=== PATIENT | female | born 1995 | race American Indian/Alaskan Native ===

== ENCOUNTER 2016-08-17 09:37 | Emergency (ER) | payer SELFPAY ==
[2016-08-17 09:50] VITALS: BP 123/74
[2016-08-17] MEDS ORDERED: FUL-GLO OP ONE (10:36)
[2016-08-17] MEDS ORDERED: BSS ONE (10:37)
[2016-08-17] MEDS ORDERED: TETRACAINE 0.5% ONE (10:37)
[2016-08-17] MEDS ORDERED: BSS 1 DROPS, TETRACAINE 0.5% 1 DROPS, FUL-GLO 1 MG OS ONE ×2 (10:39→11:00)
--- NOTE | 2016-08-17 10:43 | Emergency Department Report ---
[facility] Chief Complaint: Eye Problems Stated Complaint: PINK EYE Time Seen by Provider: 08/17/16 10:08 Duration: 2 Days Symptoms: Yes Eye Itching, Yes Eye Redness, Yes Eye Pain (burning), Yes Mucous Drainage, Yes Blurred Vision, No Purulent Drainage, No Preceding URI, No H/O Allergic Rhinitis, No Contact Lens Use, No Trauma, No Fever, No Headache Other History: Patient complains of Left eye itching and burning 2 days. States she woke up today and the left eye was gum shut. Reports blurring of vision in the left eye and light sensitivity. Denies headache, fever, chills, nausea, vomiting, rash. Denies trauma to eye. Denies other acute eye complaints. LMP 07/30/16. ED Review of Systems ROS: Stated complaint: PINK EYE Other details as noted in HPI Comment: All other systems reviewed and negative ED Past Medical Hx - Past Medical History Hx Hypertension: No Hx Congestive Heart Failure: No Hx Diabetes: No Hx Deep Vein Thrombosis: No Hx Renal Disease: No Hx Sickle Cell Disease: No Hx Seizures: No Hx Asthma: No Hx COPD: No Hx HIV: No - Surgical History Additional Surgical History: csection 09/02/13 - Social History Smoking Status: Never Smoker Substance Use Type: None - Medications Home Medications: Home Medications Medication Instructions Recorded Confirmed Last Taken Type Amoxicillin [Trimox CAP] 500 mg PO Q8H #30 capsule 06/12/15 Unknown Rx Fluticasone [Flonase] 2 spray NS QDAY #01 bottle 06/12/15 Unknown Rx Ibuprofen [Motrin] 600 mg PO Q8H PRN #40 tablet 06/12/15 Unknown Rx Loratadine [Claritin] 10 mg PO DAILY #30 tablet 06/12/15 Unknown Rx predniSONE [Deltasone] 40 mg PO QDAY #10 tab 06/12/15 Unknown Rx Gentamicin 0.3% Ophth Oint 1 applicatio OP QHS #1 tube 08/17/16 Unknown Rx Gentamicin 0.3% Ophth Soln 1 drops OP Q4H #1 bottle 08/17/16 Unknown Rx [facility] Exam - Exam General: Vital signs noted. No distress. Alert and acting appropriately. Eye Exam: Left Injection (mild compared to R.), Left Mucous Discharge, Left Photophobia, Both EOMI, Neither Chemosis, Neither Abnormal Pupil, Neither Eye Foreign Body, Neither Lid Foreign Body, Neither Purulent Discharge, Neither Fluorescein Uptake (under Pedraza lamp), Neither Corneal Edema HEENT: No Nasal Congestion, No Pharyngeal Erythema Remainder of HEENT: Normal Lungs: Yes Clear Lung Sounds, Yes Good Air Exchange, No Wheezes, No Stridor, No Cough, No Nasal Flaring, No Retractions, No Use of Accessory Muscles Exam: Visual Acuity: 20/25: OU, 20/30: OS, 20/20: OD. ED Course Vital Signs 08/17/16 09:48 Temperature 97.9 F Pulse Rate 74 Respiratory 16 Rate Blood Pressure 123/74 O2 Sat by Pulse 100 Oximetry Critical care attestation.: If time is entered above; I have spent that time in minutes in the direct care of this critically ill patient, excluding procedure time. ED Disposition Clinical Impression: Conjunctivitis Qualifiers: Conjunctivitis type: unspecified Laterality: left Qualified Code(s): H10.9 - Unspecified conjunctivitis Disposition: DISCHARGED TO HOME OR SELFCARE Is pt being admited?: No Does the pt Need Aspirin: No Condition: Stable Instructions: Conjunctivitis (ED) Prescriptions: Gentamicin 0.3% Ophth Oint 1 applicatio OP QHS #1 tube Gentamicin 0.3% Ophth Soln 1 drops OP Q4H #1 bottle Referrals: SMITA AVINA MD [Staff Physician] - 2-3 Days PRIMARY CARE, [Primary Care Provider] - 2-3 Days
== END 2016-08-17 11:01 | disposition home or self-care (01) ==
LOC: ED 09:37
DX: H10.9 Unspecified conjunctivitis (principal)
CPT/HCPCS: 99282

== ENCOUNTER 2018-01-12 00:20 | Emergency (ER) | payer SELFPAY ==
[2018-01-12 00:27] VITALS: BP 141/72
== END 2018-01-12 00:27 | disposition left against medical advice (07) ==
LOC: ED 00:20
DX: N93.9 Abnormal uterine and vaginal bleeding, unspecified (principal); Z53.21 Procedure and treatment not carried out due to patient leaving prior to being seen by health care provider

== ENCOUNTER 2018-04-13 14:41 | Inpatient (IN) | payer SELFPAY ==
[2018-04-13] MEDS ORDERED: TORADOL IV ONE (15:07)
[2018-04-13] MEDS ORDERED: ZOFRAN IV ONE (15:07)
[2018-04-13] MEDS ORDERED: NACL 0.9% 1000 ML 1,000 ML IV ONE ×2 (15:07→19:26)
--- NOTE | 2018-04-13 15:08 | Emergency Department Report ---
ED Abdominal Pain HPI - General Chief Complaint: Abdominal Pain Stated Complaint: STOMACH PAIN/VOMIT Time Seen by Provider: 04/13/18 15:05 Source: patient Mode of arrival: Ambulatory Limitations: No Limitations - History of Present Illness Initial Comments: This is a 22-year-old female nontoxic, well nourished in appearance, no acute signs of distress presents to the ED with c/o of nausea and vomiting and abdominal pain 1 day. Patient describes vomiting as food content and yellow gastric acid. Patient describes abdominal pain as cramping and aching with level of 3/10 diffuse. Patient denies chest pain, short of breath, fever, chills, headache, stiff neck, numbness or tingling. Patient denies any diarrhea or constipation. Patient denies any recent travels. Patient denies any allergies or PMH. MD Complaint: abdominal pain -: days(s) (1) Location: diffuse Radiation: none Migration to: no migration Severity: mild Severity scale (0 -10): 3 Quality: cramping, aching Consistency: constant Improves With: nothing Worsens With: nothing Associated Symptoms: nausea, vomiting. denies: diarrhea, fever, chills, constipation, dysuria, hematemesis, hematochezia, melena, hematuria, anorexia, syncope - Related Data Previous Rx's Medication Instructions Recorded Last Taken Type Amoxicillin [Trimox CAP] 500 mg PO Q8H #30 capsule 06/12/15 Unknown Rx Fluticasone [Flonase] 2 spray NS QDAY #01 bottle 06/12/15 Unknown Rx Ibuprofen [Motrin] 600 mg PO Q8H PRN #40 tablet 06/12/15 Unknown Rx Loratadine [Claritin] 10 mg PO DAILY #30 tablet 06/12/15 Unknown Rx predniSONE [Deltasone] 40 mg PO QDAY #10 tab 06/12/15 Unknown Rx Gentamicin 0.3% Ophth Oint 1 applicatio OP QHS #1 tube 08/17/16 Unknown Rx Gentamicin 0.3% Ophth Soln 1 drops OP Q4H #1 bottle 08/17/16 Unknown Rx Allergies Allergy/AdvReac Type Severity Reaction Status Date / Time No Known Allergies Allergy Verified 06/12/15 07:44 ED Review of Systems ROS: Stated complaint: STOMACH PAIN/VOMIT Other details as noted in HPI Constitutional: denies: chills, fever Eyes: denies: eye pain, eye discharge, vision change ENT: denies: ear pain, throat pain Respiratory: denies: cough, shortness of breath, wheezing Cardiovascular: denies: chest pain, palpitations Endocrine: no symptoms reported Gastrointestinal: abdominal pain, nausea, vomiting. denies: diarrhea Genitourinary: denies: urgency, dysuria, discharge Musculoskeletal: denies: back pain, joint swelling, arthralgia Skin: denies: rash, lesions Neurological: denies: headache, weakness, paresthesias Psychiatric: denies: anxiety, depression Hematological/Lymphatic: denies: easy bleeding, easy bruising ED Past Medical Hx - Past Medical History Hx Hypertension: No Hx Congestive Heart Failure: No Hx Diabetes: No Hx Deep Vein Thrombosis: No Hx Renal Disease: No Hx Sickle Cell Disease: No Hx Seizures: No Hx Asthma: No Hx COPD: No Hx HIV: No - Surgical History Additional Surgical History: csection 09/02/13 - Social History Smoking Status: Never Smoker Substance Use Type: None - Medications Home Medications: Home Medications Medication Instructions Recorded Confirmed Last Taken Type Amoxicillin [Trimox CAP] 500 mg PO Q8H #30 capsule 06/12/15 Unknown Rx Fluticasone [Flonase] 2 spray NS QDAY #01 bottle 06/12/15 Unknown Rx Ibuprofen [Motrin] 600 mg PO Q8H PRN #40 tablet 06/12/15 Unknown Rx Loratadine [Claritin] 10 mg PO DAILY #30 tablet 06/12/15 Unknown Rx predniSONE [Deltasone] 40 mg PO QDAY #10 tab 06/12/15 Unknown Rx Gentamicin 0.3% Ophth Oint 1 applicatio OP QHS #1 tube 08/17/16 Unknown Rx Gentamicin 0.3% Ophth Soln 1 drops OP Q4H #1 bottle 08/17/16 Unknown Rx ED Physical Exam - General Limitations: No Limitations General appearance: alert, in no apparent distress - Head Head exam: Present: atraumatic, normocephalic - Eye Eye exam: Present: normal appearance Pupils: Present: normal accommodation - ENT ENT exam: Present: normal exam, mucous membranes moist - Neck Neck exam: Present: normal inspection, full ROM. Absent: tenderness, meningismus, lymphadenopathy - Respiratory Respiratory exam: Present: normal lung sounds bilaterally. Absent: respiratory distress, wheezes, rales, rhonchi, stridor, chest wall tenderness, accessory muscle use, decreased breath sounds, prolonged expiratory - Cardiovascular Cardiovascular Exam: Present: regular rate, normal rhythm, normal heart sounds. Absent: bradycardia, tachycardia, irregular rhythm, systolic murmur, diastolic murmur, rubs, gallop - GI/Abdominal GI/Abdominal exam: Present: soft, tenderness (diffuse), normal bowel sounds. Absent: distended, guarding, rebound, rigid, diminished bowel sounds - Expanded GI/Abdominal Exam Expanded GI/Abdominal exam: Absent: psoas sign, heel tap sign, Gill's sign, Rovsing's sign, tenderness at Mcburney's Point - Rectal Rectal exam: Present: deferred - Extremities Exam Extremities exam: Present: normal inspection, full ROM, normal capillary refill. Absent: tenderness - Back Exam Back exam: Present: normal inspection, full ROM. Absent: tenderness, CVA tenderness (R), CVA tenderness (L), muscle spasm, paraspinal tenderness, vertebral tenderness, rash noted - Neurological Exam Neurological exam: Present: alert, oriented X3, normal gait - Psychiatric Psychiatric exam: Present: normal affect, normal mood - Skin Skin exam: Present: warm, dry, intact, normal color. Absent: rash ED Course Vital Signs 04/13/18 04/13/18 14:51 15:22 Temperature 97.7 F Pulse Rate 64 Respiratory 20 18 Rate Blood Pressure 151/76 O2 Sat by Pulse 100 Oximetry - Reevaluation(s) Reevaluation #1: 04/13/18 15:24 Patient is speaking in full sentences with no signs of distress noted. - Consultations Consultation #1: 04/13/18 19:31 Patient has been consulted with Dr. Hawk (general surgery) about patient history, physical exam, and labs/CT and agrees for admission with Zosyn IV, NPO , and NOrmal saline. Patient to be admitted with hospitalist. ED Medical Decision Making - Lab Data Result diagrams: 04/13/18 15:23 04/13/18 15:23 - Medical Decision Making This is a 22-year-old female that presents with acute appendicitis. Patient is stable and was examined by me. Patient has been consulted with Dr. Hawk with agrees for admission. Labs obtained. UA obtained. Ct with contrast of abdomen obtained and dictated by the radiologist. Patient is notified of the report with no questions noted by the patient. Vital signs are stable prior to discharge. Hospitalist has been consulted Dr. Cano in accepts patient to services. Patient put on NPO with 125 ml/hr NS. PAtient received 1L normal saline and Zofran, Zosyn, Morphin in the ED. At time of admission, the patient does not seem toxic or ill in appearance. No acute signs of distress noted. Patient agrees to admission treatment plan of care. No further questions noted by the patient. Critical care attestation.: If time is entered above; I have spent that time in minutes in the direct care of this critically ill patient, excluding procedure time. ED Disposition Clinical Impression: Acute appendicitis Qualifiers: Acute appendicitis type: unspecified acute appendicitis type Qualified Code(s) : K35.80 - Unspecified acute appendicitis Nausea & vomiting Qualifiers: Vomiting type: unspecified Vomiting Intractability: non-intractable Qualified Code(s): R11.2 - Nausea with vomiting, unspecified Disposition: DC-09 OP ADMIT IP TO THIS HOSP Is pt being admited?: Yes Condition: Stable Instructions: Abdominal Pain (ED) Referrals: PRIMARY CARE, [Primary Care Provider] - 3-5 Days
[2018-04-13 15:28] LABS: HCG Qualitative,Urine Negative (Negative)
[2018-04-13 15:30] LABS: Bilirubin,Urine NEG (Negative); Blood,Urine NEG (Negative); Color,Urine Yellow (Yellow); Mucus,Urine FEW /HPF; Protein,Urine <15 mg/dL mg/dL (Negative); RBC,Urine < 1.0 /HPF (0.0-6.0); Urobilinogen,Urine < 2.0 mg/dL (<2.0); WBC,Urine < 1.0 /HPF (0.0-6.0)
[2018-04-13 15:49] LABS: Basophils % (Auto) 0.3 % (0.0-1.8); Eosinophils # (Auto) 0.1 K/mm3 (0.0-0.4); Eosinophils % (Auto) 0.9 % (0.0-4.3); Hematocrit 33.1 % (30.3-42.9); Hemoglobin 10.5 gm/dl (10.1-14.3); Lymphocytes # (Auto) 1.2 K/mm3 (1.2-5.4); Mean Corpuscular HGB Conc 32 % (30-34); Mean Corpuscular Volume 76 fl (79-97); Monocytes # (Auto) 0.4 K/mm3 (0.0-0.8); Monocytes % (Auto) 5.7 % (0.0-7.3); Platelet Count 245 K/mm3 (140-440); Red Blood Count 4.33 M/mm3 (3.65-5.03); Red Cell Distribution Width 19.4 % (13.2-15.2)
[2018-04-13 15:57] LABS: Mean Corpuscular Hemoglobin 24 pg (28-32)
[2018-04-13 16:08] LABS: Alanine Aminotransferase 25 units/L (7-56); Albumin 4.3 g/dL (3.9-5); BUN/Creatinine Ratio 10; Blood Urea Nitrogen 7 mg/dL (7-17); Calcium 9.6 mg/dL (8.4-10.2); Hemolysis Index 1; Lipase 12 units/L (13-60)
[2018-04-13 16:35] LABS: Bilirubin,Direct < 0.2 mg/dL (0-0.2)
--- NOTE | 2018-04-13 18:44 | Cat Scan Report ---
FINAL REPORT EXAM: CT ABDOMEN PELVIS W CON HISTORY: abd pain with nausea vomiting TECHNIQUE: Spiral CT scanning of the abdomen and pelvis after the uneventful administration of IV contrast. Multiplanar reformations. 100 mL Omnipaque IV. PRIORS: None. FINDINGS: Abdomen: Visualized lung bases grossly unremarkable. No radiopaque gallstones. Liver without significant abnormality. Spleen without significant abnormality. Pancreas without significant abnormality. Kidneys without significant abnormality. Adrenal glands without significant abnormality. Pelvis: Distal appendix is mildly enlarged, measuring 7-8 mm in maximal diameter, with some wall thickening and mild inflammatory change in the surrounding mesentery. Proximal-mid appendix grossly unremarkable. Bowel grossly unremarkable. Trace amount of nonspecific, free fluid in the pelvis may be physiologic. No discrete abscess. Abdominal aorta non-aneurysmal. Axial skeleton grossly unremarkable. IMPRESSION: 1. Findings suspicious for early, acute or mild tip appendicitis. Clinical correlation with appropriate laboratory values and followup suggested. Dr. Evans discussed results with nurse practitioner, named Radha Mccarty, on 13 April 2018 at approximately 1840 hours EST.
[2018-04-13] MEDS ORDERED: MORPHINE IV ONE (19:20)
[2018-04-13] MEDS ORDERED: ZOSYN/NS 4.5GM/100ML 4.5 GM/100 ML VIAL IV ONE (19:36)
[2018-04-13] MEDS ORDERED: ZOSYN/NS 4.5GM/100ML 4.5 GM/100 ML VIAL IV SCH (20:00)
[2018-04-13] MEDS ORDERED: SODIUM CHLORIDE FLUSH SYRINGE 10 ML IV PRN (22:09)
[2018-04-13] MEDS ORDERED: MORPHINE IV PRN (22:09)
[2018-04-13] MEDS ORDERED: TYLENOL PO PRN (22:09)
--- NOTE | 2018-04-13 22:11 | History and Physical Report ---
History of Present Illness Date of examination: 04/13/18 History of present illness: 22-year-old man with no medical problems comes emergency room with complaints of abdominal pain located in the mid abdomen that started this morning. She describes the pain as crampy, constant, intensity 6/10, no radiation, relieved with pain medication. Admits to nausea vomiting, no fever or chills Review of systems Constitutional: no weight loss, chills, fever Ears, eyes, nose, mouth and throat: no nasal congestion, no nasal discharge, no sinus pressure, no vision change, no red eye. Neck: No neck pain or rigidity. Cardiovascular: no chest pain, palpitations Respiratory: no cough, shortness of breath Gastrointestinal: no hematochezia Genitourinary : no frequency , no hematuria Musculoskeletal: no joint swelling or muscle ache Integumentary: no rash, no pruritis Neurological: no parathesias, no numbness, no focal weakness Endocrine: no cold or heat intolerance, no polyuria or polydipsia Hematologic/Lymphatic: no easy bruising, no easy bleeding, no gland swelling Allergic/Immunologic: no urticaria, no angioedema. PAST MEDICAL HISTORY: None PAST SURGICAL HISTORY: SOCIAL HISTORY: No alcohol, no drugs, tobacco FAMILY HISTORY: Hypertension Medications and Allergies Allergies Allergy/AdvReac Type Severity Reaction Status Date / Time No Known Allergies Allergy Verified 06/12/15 07:44 Home Medications Medication Instructions Recorded Confirmed Last Taken Type Amoxicillin [Trimox CAP] 500 mg PO Q8H #30 capsule 06/12/15 Unknown Rx Fluticasone [Flonase] 2 spray NS QDAY #01 bottle 06/12/15 Unknown Rx Ibuprofen [Motrin] 600 mg PO Q8H PRN #40 tablet 06/12/15 Unknown Rx Loratadine [Claritin] 10 mg PO DAILY #30 tablet 06/12/15 Unknown Rx predniSONE [Deltasone] 40 mg PO QDAY #10 tab 06/12/15 Unknown Rx Gentamicin 0.3% Ophth Oint 1 applicatio OP QHS #1 tube 08/17/16 Unknown Rx Gentamicin 0.3% Ophth Soln 1 drops OP Q4H #1 bottle 08/17/16 Unknown Rx Active Meds: Active Medications Piperacillin Sod/Tazobactam Sod (Zosyn/Ns 4.5gm/100ml) 4.5 gm in 100 mls @ 200 mls/hr IV ONCE DUNIA Last Admin: 04/13/18 19:52 Dose: 200 mls/hr Sodium Chloride (Nacl 0.9% 1000 Ml) 1,000 mls @ 125 mls/hr IV ONCE ONE Stop: 04/14/18 03:25 Last Admin: 04/13/18 19:50 Dose: 125 mls/hr Exam - Physical Exam Narrative exam: Gen. appearance: Patient lying in bed, no apparent distress HEENT: Normocephalic, atraumatic, pupils equally round and reactive to light, extraocular movement intact, and no sclericterus,. No JVD or thyromegaly or nodule,neck supple, no carotid bruit ,mucous membranes moist, no exudate or erythema Heart: S1, S2, regular rate and rhythm Lungs: Clear bilaterally, breathing comfortable Abdomen: Positive bowel sounds, tender in the mid, right lower quadrant, nondistended, no organomegaly Extremity:no edema cyanosis, clubbing Skin: no rash, dry, warm Neuro: Oriented 3, cranial nerves II-12 intact, speech is fluent, motor and sensory intact - Constitutional Vitals: Temp Pulse Resp BP Pulse Ox 98.4 F 55 L 18 114/64 100 04/13/18 20:07 04/13/18 20:07 04/13/18 20:07 04/13/18 20:07 04/13/18 20:07 Results - Labs CBC & Chem 7: 04/13/18 15:23 04/13/18 15:23 Labs: Abnormal lab results 04/13/18 04/13/18 Range/Units 15:23 15:23 MCV 76 L (79-97) fl MCH 24 L (28-32) pg RDW 19.4 H (13.2-15.2) % Seg Neutrophils % 74.1 H (40.0-70.0) % Lipase 12 L (13-60) units/L - Imaging and Cardiology CT scan - abdomen: report reviewed CT scan - pelvis: report reviewed Assessment and Plan Assessment Acute appendicitis Plan Admit medicine Start IV fluids, consult surgery IV morphine, DVT prophylaxis
[2018-04-13] MEDS: ZOFRAN IV PRN (23:45)
[2018-04-13] MEDS: NACL 0.45% 1000 ML 1,000 ML IV SCH (23:46)
[2018-04-14 04:51] LABS: Basophils % (Auto) 0.4 % (0.0-1.8); Eosinophils # (Auto) 0.1 K/mm3 (0.0-0.4); Eosinophils % (Auto) 1.6 % (0.0-4.3); Hematocrit 30.9 % (30.3-42.9); Hemoglobin 9.9 gm/dl (10.1-14.3); Lymphocytes # (Auto) 2.3 K/mm3 (1.2-5.4); Lymphocytes % (Auto) 29.1 % (13.4-35.0); Mean Corpuscular HGB Conc 32 % (30-34); Mean Corpuscular Volume 77 fl (79-97); Monocytes # (Auto) 0.6 K/mm3 (0.0-0.8); Monocytes % (Auto) 7.5 % (0.0-7.3); Platelet Count 223 K/mm3 (140-440); Red Blood Count 4.03 M/mm3 (3.65-5.03); Red Cell Distribution Width 19.6 % (13.2-15.2)
[2018-04-14 04:53] LABS: Mean Corpuscular Hemoglobin 25 pg (28-32)
[2018-04-14 05:04] LABS: BUN/Creatinine Ratio 10; Blood Urea Nitrogen 7 mg/dL (7-17); Calcium 8.9 mg/dL (8.4-10.2); Hemolysis Index 2
[2018-04-14] MEDS: ZOSYN/NS 4.5GM/100ML 4.5 GM/100 ML VIAL IV SCH ×2 (05:09→14:06)
[2018-04-14] MEDS ORDERED: LOVENOX SUB-Q SCH ×2 (10:00)
[2018-04-14] MEDS: NACL 0.45% 1000 ML 1,000 ML IV SCH (12:28)
--- NOTE | 2018-04-14 13:49 | Consultation ---
History of Present Illness Consult date: 04/14/18 Chief complaint: Abdominal pain, nausea, vomiting - History of present illness History of present illness: 22-year-old female with no past medical history presented to the emergency room with complaints of right lower quadrant abdominal pain 1 day. She states that the pain was sharp and localized, did not radiate. It was not associated with food. There were no alleviating or exacerbating factors. She states that she did have multiple episodes of nausea and emesis which were nonbloody and nonbilious. She denies any fevers, chills. No sick contacts. She has never had pain like this in the past. No chest pain, shortness of breath, constipation, diarrhea. Past History Past Medical History: No medical history Past Surgical History: Social history: smoking (2-3 cigarettes a day). denies: alcohol abuse, prescription drug abuse Family history: diabetes Medications and Allergies Allergies Allergy/AdvReac Type Severity Reaction Status Date / Time No Known Allergies Allergy Verified 06/12/15 07:44 Home Medications Medication Instructions Recorded Confirmed Last Taken Type Amoxicillin [Trimox CAP] 500 mg PO Q8H #30 capsule 06/12/15 Unknown Rx Fluticasone [Flonase] 2 spray NS QDAY #01 bottle 06/12/15 Unknown Rx Ibuprofen [Motrin] 600 mg PO Q8H PRN #40 tablet 06/12/15 Unknown Rx Loratadine [Claritin] 10 mg PO DAILY #30 tablet 06/12/15 Unknown Rx predniSONE [Deltasone] 40 mg PO QDAY #10 tab 06/12/15 Unknown Rx Gentamicin 0.3% Ophth Oint 1 applicatio OP QHS #1 tube 08/17/16 Unknown Rx Gentamicin 0.3% Ophth Soln 1 drops OP Q4H #1 bottle 08/17/16 Unknown Rx Active Meds: Active Medications Acetaminophen (Tylenol) 650 mg PO Q4H PRN PRN Reason: Pain MILD(1-3)/Fever >100.5/[place] Enoxaparin Sodium (Lovenox) 40 mg SUB-Q QDAY@1000 DUNIA Hydromorphone HCl (Dilaudid) 1 mg IV Q4H PRN PRN Reason: pain Sodium Chloride (Nacl 0.45% 1000 Ml) 1,000 mls @ 75 mls/hr IV DIRECT DUNIA Last Admin: 04/14/18 12:28 Dose: 75 mls/hr Piperacillin Sod/Tazobactam Sod (Zosyn/Ns 4.5gm/100ml) 4.5 gm in 100 mls @ 200 mls/hr IV Q8HR DUNIA; Protocol Last Admin: 04/14/18 05:09 Dose: 200 mls/hr Ondansetron HCl (Zofran) 4 mg IV Q4H PRN PRN Reason: Nausea And Vomiting Last Admin: 04/13/18 23:45 Dose: 4 mg Sodium Chloride (Sodium Chloride Flush Syringe 10 Ml) 10 ml IV BID DUNIA Sodium Chloride (Sodium Chloride Flush Syringe 10 Ml) 10 ml IV PRN PRN PRN Reason: LINE FLUSH Review of Systems All systems: negative (10 point review systems was performed and negative except for that listed in HPI) Exam Vital Signs Temp Pulse Resp BP Pulse Ox 97.7 F 64 20 151/76 100 04/13/18 14:51 04/13/18 14:51 04/13/18 14:51 04/13/18 14:51 04/13/18 14:51 Narrative exam: Gen.: Awake, alert, oriented 3. No apparent distress CV: S1, S2 present Respiratory: Clear to auscultation bilaterally, No audible wheezes Abdomen: Soft, nondistended, positive tenderness to palpation in the right lower quadrant. No rebound, rigidity, guarding. Well-healed scar Extremities: No clubbing, cyanosis, edema Results - Labs 04/14/18 04:19 04/14/18 04:19 Abnormal lab results 04/13/18 04/13/18 04/14/18 Range/Units 15:23 15:23 04:19 Hgb 9.9 L (10.1-14.3) gm/dl MCV 76 L 77 L (79-97) fl MCH 24 L 25 L (28-32) pg RDW 19.4 H 19.6 H (13.2-15.2) % [place] % (Auto) 7.5 H (0.0-7.3) % Seg Neutrophils % 74.1 H (40.0-70.0) % Lipase 12 L (13-60) units/L Diabetes panel 04/13/18 04/14/18 Range/Units 15:23 04:19 Sodium 137 140 (137-145) mmol/L Potassium 4.1 4.0 (3.6-5.0) mmol/L Chloride 101.3 105.6 (98-107) mmol/L Carbon Dioxide 25 26 (22-30) mmol/L BUN 7 7 (7-17) mg/dL Creatinine 0.7 0.7 (0.7-1.2) mg/dL Glucose 98 84 (65-100) mg/dL Calcium 9.6 8.9 (8.4-10.2) mg/dL AST 25 (5-40) units/L ALT 25 (7-56) units/L Alkaline Phosphatase 73 (35-129) units/L Total Protein 8.2 (6.3-8.2) g/dL Albumin 4.3 (3.9-5) g/dL Calcium panel 04/13/18 04/14/18 Range/Units 15:23 04:19 Calcium 9.6 8.9 (8.4-10.2) mg/dL Albumin 4.3 (3.9-5) g/dL Pituitary panel 04/13/18 04/14/18 Range/Units 15:23 04:19 Sodium 137 140 (137-145) mmol/L Potassium 4.1 4.0 (3.6-5.0) mmol/L Chloride 101.3 105.6 (98-107) mmol/L Carbon Dioxide 25 26 (22-30) mmol/L BUN 7 7 (7-17) mg/dL Creatinine 0.7 0.7 (0.7-1.2) mg/dL Glucose 98 84 (65-100) mg/dL Calcium 9.6 8.9 (8.4-10.2) mg/dL Adrenal panel 04/13/18 04/14/18 Range/Units 15:23 04:19 Sodium 137 140 (137-145) mmol/L Potassium 4.1 4.0 (3.6-5.0) mmol/L Chloride 101.3 105.6 (98-107) mmol/L Carbon Dioxide 25 26 (22-30) mmol/L BUN 7 7 (7-17) mg/dL Creatinine 0.7 0.7 (0.7-1.2) mg/dL Glucose 98 84 (65-100) mg/dL Calcium 9.6 8.9 (8.4-10.2) mg/dL Total Bilirubin 0.40 (0.1-1.2) mg/dL AST 25 (5-40) units/L ALT 25 (7-56) units/L Alkaline Phosphatase 73 (35-129) units/L Total Protein 8.2 (6.3-8.2) g/dL Albumin 4.3 (3.9-5) g/dL - Imaging CT scan - abdomen: report reviewed, image reviewed CT scan - pelvis: report reviewed, image reviewed Assessment and Plan 22-year-old female with acute appendicitis 1. admitted to medical service 2. NPO 3. prn pain control 4. IVF 5. IV abx - on zosyn 6. DVT ppx 7. OR for appendectomy today- all risks, benefits, alternatives as well as all indication for surgery were discussed with the patient and her mother at the bedside. All questions were answered and consent was obtained. Thank you for this consultation, please call with any questions or concerns
[2018-04-14] MEDS ORDERED: MARCAINE 0.25% INFILTRATI ONE ×2 (13:53→15:05)
[2018-04-14] MEDS ORDERED: XYLOCAINE MPF 2% ONE (13:57)
[2018-04-14] MEDS ORDERED: ZEMURON IV ONE (13:57)
[2018-04-14] MEDS ORDERED: ZOFRAN ONE (13:57)
[2018-04-14] MEDS ORDERED: DIPRIVAN 10 MG/ML IV ONE (13:57)
[2018-04-14] MEDS ORDERED: DECADRON ONE (13:57)
[2018-04-14] MEDS ORDERED: DILAUDID ONE (13:58)
[2018-04-14] MEDS ORDERED: LACTATED RINGERS 1,000 ML ONE (14:02)
--- NOTE | 2018-04-14 14:18 | Anesthesia Consultation ---
Anesthesia Consult and Med Hx Date of service: 04/14/18 - Airway Anesthetic Teeth Evaluation: Good ROM Head & Neck: Adequate Mental/Hyoid Distance: Adequate Mallampati Class: Class I Intubation Access Assessment: Good - Pulmonary Exam CTA: Yes - Cardiac Exam Cardiac Exam: RRR - Pre-Operative Health Status ASA Pre-Surgery Classification: ASA2 Proposed Anesthetic Plan: General - Pulmonary Hx Smoking: Yes - Additional Comments Anesthesia Medical History Comments: NAC
--- NOTE | 2018-04-14 14:19 | Anesthesia Day of Surgery ---
Anesthesia Day of Surgery - Day of Surgery Patient Examined: Yes Patient H&P Reviewed: Yes Patient is NPO: Yes
[2018-04-14] MEDS ORDERED: VERSED IV NR (15:00)
[2018-04-14] MEDS: DILAUDID IV PRN ×4 (16:20→23:45)
--- NOTE | 2018-04-14 16:21 | Operative Report ---
Operative Report Operative Report: Date of operation: 04/14/18 Preoperative diagnosis: acute appendicitis Postoperative diagnosis: Acute appendicitis Procedure performed: Laparoscopic appendectomy Surgeon: Roxanne Hawk DO Anesthesia: GETA Findings: Thickened and inflamed tip of the appendix EBL:<10cc Specimen: appendix Disposition/Condition: stable to PACU HPI and indication: 22-year-old female presented to ER with RLQ pain for 1 day associated with nausea and vomiting. She was found to have acute appendicitis on CT involving the tip of the appendix. The patient was started on antibiotics and kept nothing by mouth. Appendectomy was recommended to the patient.. All risks, benefits, alternatives to surgery were discussed with the patient, all questions answered, and consent signed. Procedure in detail: Patient was identified in the preop area and taken back to the OR and placed on the OR table in supine position. After anesthesia was induced a arvizu catheter was steriley placed by the circulating nurse. A time out was performed. Local anesthetic was infilitrated into all skin incision sites. A supraumbilical incision was made and veress needle inserted however due to the patient's body habitus, the Veress needle was not traversing into the abdomen. Therefore, after a orogastric tube was placed by anesthesia, a left upper quadrant stab incision was made at [place] point, through which a Veress needle was inserted. Unfortunately, the patient's body habitus made it difficult for the Veress needle to traverse all the abdominal wall layers. Therefore at this time the super umbilical incision was extended and cut down performed. Using electrocautery, the anterior fascia was exposed and incised and then spread, the posterior fascia was grasped between 2 hemostats and incised using Metzenbaum scissors, and then finally the peritoneum was grasped between 2 hemostats and incised very carefully using a hemostat. At this point a gloved finger was inserted through the incision and abdominal positioning confirmed. A 5 mm Optiview trocar was then placed into the abdomen and the abdomen insufflated to 15 mmHg. The abdomen was carefully inspected and all underlying abdominal structures appeared without injury. A 5mm trocar suprapubic and a 12 mm LLQ trocar were then placed under direct visualization. The patient was tilted to the left and placed in Trendelenburg position. The appendix was visualized and noted to be inflamed and thickened at the tip. The base of the appendix was identified and lateral peritoneal attachments were dissected using the Harmonic scalpel. The mesentery of the appendix was ligated using the harmonic scalpel. The base of the appendix was transected using an [employer] flex stapler 45mm white load. The appendix was placed into an endocatch bag and removed via the 12 mm port. This was passed off the table as specimen. The staple line and mesentery were then inspected. There was pinpoint bleeding from one area of the staple line which was controlled using clips. No further bleeding was visualized. Hemostasis was carefully ensured 12 mm port fascia and 5 mm supraumbilical port fascia was closed with 0 Vicryl sutures using the [place]. All skin incisions were infiltrated with local anesthetic once again and then closed using 4-0 monocryl subcuticular stitches and skin glue. At the end of the case, all sponge, instrument, sharp counts were correct x2. The patient was awoken from anesthesia, arvizu catheter removed, and taken to PACU in stable condition.
[2018-04-14] MEDS: PERCOCET 5/325 PO PRN (20:26)
[2018-04-14] MEDS: SODIUM CHLORIDE FLUSH SYRINGE 10 ML IV SCH (23:47)
[2018-04-15] MEDS: LACTATED RINGERS 1,000 ML IV SCH ×2 (01:36→12:40)
--- NOTE | 2018-04-15 02:52 | Progress Note ---
Hospitalist Physical - Constitutional Vitals: Temp Pulse Resp BP Pulse Ox 98.1 F 68 20 110/65 97 04/14/18 23:25 04/14/18 23:25 04/14/18 23:25 04/14/18 23:25 04/14/18 23:25 Results - Labs CBC & Chem 7: 04/14/18 04:19 04/14/18 04:19 Labs: Laboratory Last Values WBC 7.8 K/mm3 (4.5-11.0) 04/14/18 04:19 RBC 4.03 M/mm3 (3.65-5.03) 04/14/18 04:19 Hgb 9.9 gm/dl (10.1-14.3) L 04/14/18 04:19 Hct 30.9 % (30.3-42.9) 04/14/18 04:19 MCV 77 fl (79-97) L 04/14/18 04:19 MCH 25 pg (28-32) L 04/14/18 04:19 MCHC 32 % (30-34) 04/14/18 04:19 RDW 19.6 % (13.2-15.2) H 04/14/18 04:19 Plt Count 223 K/mm3 (140-440) 04/14/18 04:19 Lymph % (Auto) 29.1 % (13.4-35.0) 04/14/18 04:19 [place] % (Auto) 7.5 % (0.0-7.3) H 04/14/18 04:19 Eos % (Auto) 1.6 % (0.0-4.3) 04/14/18 04:19 Baso % (Auto) 0.4 % (0.0-1.8) 04/14/18 04:19 Lymph # 2.3 K/mm3 (1.2-5.4) 04/14/18 04:19 [place] # 0.6 K/mm3 (0.0-0.8) 04/14/18 04:19 Eos # 0.1 K/mm3 (0.0-0.4) 04/14/18 04:19 Baso # 0.0 K/mm3 (0.0-0.1) 04/14/18 04:19 Seg Neutrophils % 61.4 % (40.0-70.0) 04/14/18 04:19 Seg Neutrophils # 4.8 K/mm3 (1.8-7.7) 04/14/18 04:19 Sodium 140 mmol/L (137-145) 04/14/18 04:19 Potassium 4.0 mmol/L (3.6-5.0) 04/14/18 04:19 Chloride 105.6 mmol/L (98-107) 04/14/18 04:19 Carbon Dioxide 26 mmol/L (22-30) 04/14/18 04:19 Anion Gap 12 mmol/L 04/14/18 04:19 BUN 7 mg/dL (7-17) 04/14/18 04:19 Creatinine 0.7 mg/dL (0.7-1.2) 04/14/18 04:19 Estimated GFR > 60 ml/min 04/14/18 04:19 BUN/Creatinine Ratio 10 % 04/14/18 04:19 Glucose 84 mg/dL (65-100) 04/14/18 04:19 Calcium 8.9 mg/dL (8.4-10.2) 04/14/18 04:19 Total Bilirubin 0.40 mg/dL (0.1-1.2) 04/13/18 15:23 Direct Bilirubin < 0.2 mg/dL (0-0.2) 04/13/18 15:23 Indirect Bilirubin 0.2 mg/dL 04/13/18 15:23 AST 25 units/L (5-40) 04/13/18 15:23 ALT 25 units/L (7-56) 04/13/18 15:23 Alkaline Phosphatase 73 units/L (35-129) 04/13/18 15:23 Total Protein 8.2 g/dL (6.3-8.2) 04/13/18 15:23 Albumin 4.3 g/dL (3.9-5) 04/13/18 15:23 Albumin/Globulin Ratio 1.1 % 04/13/18 15:23 Lipase 12 units/L (13-60) L 04/13/18 15:23 Urine Color Yellow (Yellow) 04/13/18 15:03 Urine Turbidity Clear (Clear) 04/13/18 15:03 Urine pH 6.0 (5.0-7.0) 04/13/18 15:03 Ur Specific [place] 1.016 (1.003-1.030) 04/13/18 15:03 Urine Protein <15 mg/dl mg/dL (Negative) 04/13/18 15:03 Urine Glucose (UA) Neg mg/dL (Negative) 04/13/18 15:03 Urine Ketones Neg mg/dL (Negative) 04/13/18 15:03 Urine Blood Neg (Negative) 04/13/18 15:03 Urine Nitrite Neg (Negative) 04/13/18 15:03 Ur Reducing Substances Not Reportable 04/13/18 15:03 Urine Bilirubin Neg (Negative) 04/13/18 15:03 Urine Ictotest Not Reportable 04/13/18 15:03 Urine Urobilinogen < 2.0 mg/dL (<2.0) 04/13/18 15:03 Ur Leukocyte Esterase Neg (Negative) 04/13/18 15:03 Urine WBC (Auto) < 1.0 /HPF (0.0-6.0) 04/13/18 15:03 Urine RBC (Auto) < 1.0 /HPF (0.0-6.0) 04/13/18 15:03 U Epithel Cells (Auto) 1.0 /HPF (0-13.0) 04/13/18 15:03 Urine Mucus Few /HPF 04/13/18 15:03 Urine HCG, Qual Negative (Negative) 04/13/18 15:03
[2018-04-15] MEDS: DILAUDID IV PRN ×2 (05:46→11:08)
[2018-04-15] MEDS: PERCOCET 5/325 PO PRN ×2 (09:09→14:42)
[2018-04-15] MEDS: ZOFRAN IV PRN (09:09)
[2018-04-15] MEDS: SODIUM CHLORIDE FLUSH SYRINGE 10 ML IV SCH (09:11)
[2018-04-15 13:06] VITALS: BP 109/61
--- NOTE | 2018-04-15 14:52 | Progress Note ---
Assessment and Plan - Patient Problems (1) Acute appendicitis Current Visit: Yes Status: Acute Qualifiers: Acute appendicitis type: unspecified acute appendicitis type Qualified Code (s): K35.80 - Unspecified acute appendicitis Plan to address problem: Pt stable. s/p lap appy - 04/14 POD#1. Looks well. Okay for discharge home. Discussed wound care discuss diet and restrictions she should call on Tuesday to schedule a follow-up appointment with No heavy lifting or strenuous activity for 6 weeks Please call with questions. Subjective Date of service: 04/15/18 Patient Reports: Positive: no new complaints, feels better, tolerating liquids well. Negative: nausea, vomiting Objective Vital Signs - 12hr 04/15/18 04/15/18 04/15/18 04:39 06:16 07:17 Temperature 97.9 F 98.2 F Pulse Rate 62 55 L Respiratory 20 20 18 Rate Respiratory Rate [Abdomen] Blood Pressure 109/63 118/68 O2 Sat by Pulse 98 99 Oximetry 04/15/18 04/15/18 04/15/18 07:18 09:09 09:55 Temperature Pulse Rate 55 L Respiratory 20 Rate Respiratory 20 Rate [Abdomen] Blood Pressure O2 Sat by Pulse 100 Oximetry 04/15/18 04/15/18 04/15/18 10:09 11:08 12:18 Temperature 98.2 F Pulse Rate 68 Respiratory 20 16 28 H Rate Respiratory Rate [Abdomen] Blood Pressure 109/61 O2 Sat by Pulse 99 Oximetry 04/15/18 14:42 Temperature Pulse Rate Respiratory 16 Rate Respiratory Rate [Abdomen] Blood Pressure O2 Sat by Pulse Oximetry - General physical appearance no distress, no pain - Eyes normal occular movement - Respiratory normal expansion, normal respiratory effort - Abdomen soft, tender (appropriate), not distended, not guarding, not rigid, surgical scars (C/D/I) - Labs 04/14/18 04:19 04/14/18 04:19
--- NOTE | 2018-04-15 15:02 | Discharge Summary ---
Providers - Providers Date of Admission: 04/13/18 22:09 Date of discharge: 04/15/18 Attending physician: HARPAL HILLS 04/13/18 21:20 Consult to Physician [CONS] Stat Comment: Consulting Provider: ELINA NÚÑEZ Physician Instructions: Reason For Exam: acute appendicitis Primary care physician: [facility] Hospitalization Condition: Stable Disposition: DC-01 TO HOME OR SELFCARE Exam - Constitutional Vitals: Temp Pulse Resp BP Pulse Ox 98.2 F 68 16 109/61 99 04/15/18 12:18 04/15/18 12:18 04/15/18 14:42 04/15/18 12:18 04/15/18 12:18 Plan Diet: low fat, low cholesterol Additional Instructions: 1.Follow up with PCP or [facility] in 1 week. 2.Follow up with Dr. Núñez in 2 weeks. 3.No heavy lifting or strenous activity for 6 weeks Follow up with: PRIMARY CARE,MD [Primary Care Provider] - 3-5 Days Prescriptions: oxyCODONE /ACETAMINOPHEN [Percocet 5/325] 1 tab PO Q6HR PRN #12 tablet PRN Reason: Pain
== END 2018-04-15 16:38 | disposition home or self-care (01) | DRG 343 ==
LOC: ED 14:41 → 3B-SURG 22:09
PROVIDERS: ADMIT Internal Medicine; ATTEND Internal Medicine
PROC: 0DTJ4ZZ Resection of Appendix, Percutaneous Endoscopic Approach (ICD-10-PCS; principal; 2018-04-14)
DX: K35.80 Unspecified acute appendicitis (principal); F17.210 Nicotine dependence, cigarettes, uncomplicated; Z83.3 Family history of diabetes mellitus; Z79.899 Other long term (current) drug therapy; Z82.49 Family history of ischemic heart disease and other diseases of the circulatory system
CPT/HCPCS: 36415; 74177; 80048; 80074; 81001; 81025; 83690; 85025; 88304; 96365; 96375; J1100; J1170; J1650; J1885; J2250; J2270; J2405; J2543; J2704; J7030; J7120; Q9967

== ENCOUNTER 2018-07-25 08:36 | Emergency (ER) | payer SELFPAY ==
[2018-07-25 08:45] VITALS: BP 130/92
[2018-07-25 10:56] LABS: Bacteria,Urine 3+ /HPF (Negative); Bilirubin,Urine NEG (Negative); Blood,Urine NEG (Negative); Color,Urine Yellow (Yellow); Mucus,Urine 2+ /HPF; Protein,Urine <15 mg/dL mg/dL (Negative); Urobilinogen,Urine < 2.0 mg/dL (<2.0)
[2018-07-25 11:01] LABS: HCG Qualitative,Urine Negative (Negative)
--- NOTE | 2018-07-25 11:08 | Emergency Department Report ---
ED Dysuria HPI - HPI Chief Complaint: Urogenital-Female Stated Complaint: YEAST INFECTION Time Seen by Provider: 07/25/18 09:56 Duration: 4 Days Location of Discomfort: Suprapubic Severity: Mild Symptoms: Dysuria: No, Frequency: No, Suprapubic Pain: No, Flank Pain: No, Fever: No, Hematuria: No, Abdominal Pain: No, Previous UTI's: No Other History: She has a 22-year-old female who presents to the ER with complaints of vaginal discharge. She states that she has frequent yeast infections. Patient is not she had a negative home test. Patient states that she gets yeast infections recently. She has not concern for STI's. ED Review of Systems ROS: Stated complaint: YEAST INFECTION Other details as noted in HPI Comment: All other systems reviewed and negative Constitutional: denies: chills Eyes: denies: eye pain ENT: denies: throat pain Cardiovascular: denies: dyspnea on exertion Endocrine: denies: see HPI Gastrointestinal: denies: nausea Genitourinary: as per HPI, discharge, abnormal menses. denies: urgency, dysuria, frequency, hematuria Skin: denies: as per HPI Neurological: denies: headache Psychiatric: denies: anxiety Hematological/Lymphatic: denies: easy bleeding ED Past Medical Hx - Past Medical History Previous Medical History?: No Hx Hypertension: No Hx Congestive Heart Failure: No Hx Diabetes: No Hx Deep Vein Thrombosis: No Hx Renal Disease: No Hx Sickle Cell Disease: No Hx Seizures: No Hx Asthma: No Hx COPD: No Hx HIV: No - Surgical History Past Surgical History?: Yes Hx Appendectomy: Yes Additional Surgical History: csection 09/02/13 - Social History Smoking Status: Former Smoker Substance Use Type: None - Medications Home Medications: Home Medications Medication Instructions Recorded Confirmed Last Taken Type Fluconazole [Diflucan TAB] 100 mg PO QDAY #3 tablet 07/25/18 Unknown Rx Dysuria Exam - Exam General: Vital signs noted. No distress. Alert and acting appropriately. Exam: Yes Moist Mucous Membranes, No CVA Tenderness, No Abdominal Tenderness, No Rigidity or Guarding Labs: Lab Results 07/25/18 Range/Units 10:21 Urine Color Yellow (Yellow) Urine Turbidity Clear (Clear) Urine pH 5.0 (5.0-7.0) Ur Specific [place] 1.019 (1.003-1.030) Urine Protein <15 mg/dl (Negative) mg/dL Urine Glucose (UA) Neg (Negative) mg/dL Urine Ketones Neg (Negative) mg/dL Urine Blood Neg (Negative) Urine Nitrite Neg (Negative) Urine Bilirubin Neg (Negative) Urine Urobilinogen < 2.0 (<2.0) mg/dL Ur Leukocyte Esterase Neg (Negative) Urine WBC (Auto) 1.0 (0.0-6.0) /HPF Urine RBC (Auto) 2.0 (0.0-6.0) /HPF U Epithel Cells (Auto) 1.0 (0-13.0) /HPF Urine Bacteria (Auto) 3+ (Negative) /HPF Urine Mucus 2+ /HPF Urine HCG, Qual Negative (Negative) ED Course Vital Signs 07/25/18 08:41 Temperature 98.2 F Pulse Rate 80 Respiratory 18 Rate Blood Pressure 130/92 O2 Sat by Pulse 98 Oximetry ED Medical Decision Making - Medical Decision Making not concerned for sti ua noted dc with diflucan Lab Results 07/25/18 Range/Units 10:21 Urine Color Yellow (Yellow) Urine Turbidity Clear (Clear) Urine pH 5.0 (5.0-7.0) Ur Specific [place] 1.019 (1.003-1.030) Urine Protein <15 mg/dl (Negative) mg/dL Urine Glucose (UA) Neg (Negative) mg/dL Urine Ketones Neg (Negative) mg/dL Urine Blood Neg (Negative) Urine Nitrite Neg (Negative) Urine Bilirubin Neg (Negative) Urine Urobilinogen < 2.0 (<2.0) mg/dL Ur Leukocyte Esterase Neg (Negative) Urine WBC (Auto) 1.0 (0.0-6.0) /HPF Urine RBC (Auto) 2.0 (0.0-6.0) /HPF U Epithel Cells (Auto) 1.0 (0-13.0) /HPF Urine Bacteria (Auto) 3+ (Negative) /HPF Urine Mucus 2+ /HPF Urine HCG, Qual Negative (Negative) - Differential Diagnosis ro preg Critical care attestation.: If time is entered above; I have spent that time in minutes in the direct care of this critically ill patient, excluding procedure time. ED Disposition Clinical Impression: Vaginitis Disposition: DC-01 TO HOME OR SELFCARE Is pt being admited?: No Does the pt Need Aspirin: No Condition: Stable Instructions: Vaginitis (ED) Referrals: PRIMARY CARE, [Primary Care Provider] - 3-5 Days Time of Disposition: 11:05
== END 2018-07-25 11:38 | disposition home or self-care (01) ==
LOC: ED 08:36
DX: N76.0 Acute vaginitis (principal); Z90.49 Acquired absence of other specified parts of digestive tract; Z87.891 Personal history of nicotine dependence
CPT/HCPCS: 81001; 81025; 99283